=== PATIENT | male | born 1980 | race Caucasian/White ===

== ENCOUNTER 2018-09-13 00:27 | Emergency (ER) | payer BC ==
[2018-09-13 00:35] VITALS: RESP 18
--- NOTE | 2018-09-13 02:11 | ED ---
Headache HPI - General Source: patient, RN notes reviewed Mode of arrival: ambulatory Limitations: no limitations <Zachery Ramos - Last Filed: 09/13/18 02:08> <Susan Ruiz - Last Filed: 09/17/18 02:17> - General Chief Complaint: Headache Stated Complaint: Lump on head Time Seen by Provider: 09/13/18 02:00 - History of Present Illness Initial Comments: 37-year-old male presents emergency department for intermittent left-sided head pain. Patient states that he's noticed it worsens with exertion. Patient states he gets a shooting pain from the backside of his head to the front. Patient denies any current symptoms at this time. He states that he does get very irritated and movement does not make it worse. He states he notices it with exertion. Patient states that he is traveling back to [place] tomorrow and just wanted to have it checked out. He denies any upper extremity weakness , paresthesias, chest pain, shortness breath. Patient denies any trauma no fever no chills. (Zachery Ramos) - Related Data Allergies Allergy/AdvReac Type Severity Reaction Status Date / Time No Known Allergies Allergy Verified 09/13/18 00:35 Review of Systems ROS Other: All systems not noted in ROS Statement are negative. <Zachery Ramos - Last Filed: 09/13/18 02:08> ROS Other: All systems not noted in ROS Statement are negative. <Susan Ruiz - Last Filed: 09/17/18 02:17> ROS Statement: Those systems with pertinent positive or pertinent negative responses have been documented in the HPI. Past Medical History Past Medical History: No Reported History History of Any Multi-Drug Resistant Organisms: None Reported Past Surgical History: No Surgical Hx Reported Past Psychological History: No Psychological Hx Reported Smoking Status: Never smoker Past Alcohol Use History: None Reported Past Drug Use History: None Reported <Zachery Ramos - Last Filed: 09/13/18 02:08> General Exam Limitations: no limitations General appearance: alert, in no apparent distress Head exam: Present: atraumatic, normocephalic, normal inspection, other ( Patient reports pain at the left occipital region but no change with palpation.) Eye exam: Present: normal appearance, PERRL, EOMI. Absent: scleral icterus, conjunctival injection, periorbital swelling ENT exam: Present: normal exam, normal oropharynx, mucous membranes moist, TM's normal bilaterally, normal external ear exam Neck exam: Present: normal inspection, full ROM. Absent: tenderness, meningismus, lymphadenopathy Respiratory exam: Present: normal lung sounds bilaterally. Absent: respiratory distress, wheezes, rales, rhonchi, stridor Cardiovascular Exam: Present: regular rate, normal rhythm, normal heart sounds. Absent: systolic murmur, diastolic murmur, rubs, gallop, clicks Neurological exam: Present: alert, oriented X3, CN II-XII intact, reflexes normal, other (Finger to nose intact bilaterally without shooting). Absent: motor sensory deficit Skin exam: Present: warm, dry, intact, normal color. Absent: rash <Zachery Ramos - Last Filed: 09/13/18 02:08> Vital Signs 09/13/18 09/13/18 00:32 02:31 Temperature 98.2 F 98.3 F Pulse Rate 73 76 Respiratory 18 18 Rate Blood Pressure 140/94 143/89 O2 Sat by Pulse 100 99 Oximetry Medical Decision Making <Zachery Ramos - Last Filed: 09/13/18 02:08> <Susan Ruiz - Last Filed: 09/17/18 02:17> - Medical Decision Making 37-year-old male presented for intermittent headache. Patient has normal neuro exam this time. Patient reports occipital head pain, occipital neuralgia type headache. Patient is stable at this time. Patient will follow-up neurology in his home state. Patient is advised take anti-inflammatories at this time return for any worsening symptoms. Patient is symptom-free (Zachery Ramos) I was available for consultation in the emergency department. The history and physical exam were done by the midlevel provider. I was consulted for this patient's care. I reviewed the case with the midlevel provider and based on their presentation of the patient, I agree with the assessment, medical decision making and plan of care as documented. (Susan Ruiz) Disposition Is patient prescribed a controlled substance at d/c from ED?: No Time of Disposition: 02:11 <Zachery Ramos - Last Filed: 09/13/18 02:08> <Susan Ruiz - Last Filed: 09/17/18 02:17> Clinical Impression: Occipital headache, Occipital neuralgia of left side Disposition: HOME SELF-CARE Condition: Stable Instructions: Acute Headache (ED) Additional Instructions: Please return to the Emergency Department if symptoms worsen or any other concerns. Referrals: None,Stated [Primary Care Provider] - 1-2 days
[2018-09-13 02:32] VITALS: BP 143/89; PULSE 76; TEMP 98.3
== END 2018-09-13 02:32 | disposition home or self-care (01) ==
LOC: EC 00:27
DX: M54.81 Occipital neuralgia (principal)
CPT/HCPCS: 99283